=== PATIENT | female | born 1995 | race American Indian/Alaskan Native ===

== ENCOUNTER 2017-08-22 10:55 | Emergency (ER) | payer OTHER ==
[2017-08-22 12:15] VITALS: TEMP 99.5; O2SAT 100
[2017-08-22] MEDS ORDERED: Sodium Chloride 0.9% 1,000 ML IV ONE (13:03)
--- NOTE | 2017-08-22 13:03 | C.PDOC ---
History Of Present Illness 22 year old female presents to the ED with complaints of diffuse abdominal pain , nausea, and blood in stool for two days. Patient reports she was seen in [facility] yesterday for vaginal bleeding for 5 days and was diagnosed with a " demise <20 weeks". She states she was only given Zofran and discharged home. PT HAS NOT FILLED ZOFRAN RX. Patient is . Patient denies vomiting, diarrhea, fever, or other complaints at this time. Time Seen by Provider: 08/22/17 11:39 Chief Complaint (Nursing): Medical Clearance History Per: Patient History/Exam Limitations: no limitations Onset/Duration Of Symptoms: Days (2 days ) Current Symptoms Are (Timing): Still Present Quality Of Discomfort: "Pain" Associated Symptoms: Nausea. denies: Fever, Chills, Vomiting, Diarrhea Alleviating Factors: None Recent travel outside of the [place]: No Additional History Per: Family, Prior Records ([facility] discharge paper work ) Past Medical History Reviewed: Historical Data, Nursing Documentation, Vital Signs Vital Signs: Last Vital Signs Temp 99.5 F 08/22/17 12:14 Pulse 70 08/22/17 12:14 Resp 20 08/22/17 12:14 BP 107/69 08/22/17 12:14 Pulse Ox 100 08/22/17 15:19 - Medical History PMH: Chronic Kidney Disease Surgical History: Appendectomy (2011) Family History: States: Unknown Family Hx - Social History Hx Tobacco Use: No Hx Alcohol Use: No Hx Substance Use: Yes (Marijuana) - Immunization History Hx Tetanus Toxoid Vaccination: No Hx Influenza Vaccination: No Hx Pneumococcal Vaccination: No Review Of Systems Constitutional: Negative for: Fever, Chills Cardiovascular: Negative for: Chest Pain, Palpitations Respiratory: Negative for: Cough, Shortness of Breath Gastrointestinal: Positive for: Nausea, Abdominal Pain, Hematochezia. Negative for: Vomiting, Diarrhea Genitourinary: Negative for: Dysuria Physical Exam - Physical Exam Appears: Non-toxic, No Acute Distress Skin: Warm, Dry, No Rash Head: Atraumatic, Normacephalic, No Tenderness Eye(s): bilateral: Normal Inspection, PERRL, EOMI Oral Mucosa: Moist Neck: Supple Chest: Symmetrical, No Deformity Cardiovascular: Rhythm Regular, No Murmur Respiratory: No Rales, No Rhonchi, No Wheezing, Other (clear to auscultation bilaterally ) Gastrointestinal/Abdominal: Soft, No Tenderness, No Distention, No Guarding, No Rebound Rectal: Other (Guacic card shows brown stool, no gross blood. Chaperoned by pierre Mazariegos. ) Back: No CVA Tenderness Extremity: Normal ROM, No Tenderness Neurological/Psych: Oriented x3 ED Course And Treatment - Laboratory Results Result Diagrams: 08/22/17 13:23 08/22/17 13:23 O2 Sat by Pulse Oximetry: 100 (RA) - CT Scan/US First trimester US Other Rad Studies (CT/US): Read By Radiologist, Radiology Report Reviewed CT/US Interpretation: FINDINGS: UTERUS: Single intrauterine gestation. CRL equivalent to 6 weeks 2 days gestatioin. Gestational sac diameter equivalent to out of range for age determination. age (Ultrasound estimated): 6 weeks 2 days. No detectable cardiac activity. Seema-gestational hemorrhage: None. Uterus measures 6.8 x 5.6 x 6.7 cm. No mass. CERVIX: Long and closed. No cervical abnormality seen. RIGHT OVARY: Measures 3.0 x 2.0 x 3.3 cm. No mass. Normal flow. LEFT OVARY: Measures 2.9 x 1.9 x 3.2 cm. No mass. Normal flow. FREE FLUID: None. OTHER FINDINGS: None. IMPRESSION: Six weeks 2 day intrauterine gestation without detectable cardiac activity. Concerning for demise. Followup with serial beta HCG and transvaginal pelvic ultrasound examination is advised. Progress Note: Blood work, labs, and 1st trimerster USwere ordered. Patient was given Zofran and IV fluids. Progress - Re-Evaluation Re-evaluation Note: 08/22/17 15:20 APPEARS COMFORTABLE. VSS MILD NAUSEA D/W DR April RUSSELL, METHERGINE 0.2 MG PO Q4 X 6 DOSES, NSAIDS FU CLINIC - Data Reviewed Data Reviewed: Lab, Diagnostic imaging, Old records - Continuity of Care Discussed patient case with:: Patient Discussed pt. case with networks software consultant/specialty: Obstetrics/Gynecology Disposition Counseled Patient/Family Regarding: Studies Performed, Diagnosis, Need For Followup, Rx Given - Disposition Referrals: Education Counselor Service [Outside] [facility] [Outside] Disposition: HOME/ ROUTINE Disposition Time: 15:21 Condition: IMPROVED Additional Instructions: FILL ZOFRAN PRESCRIPTION GIVEN TO YOU BY [facility] TAKE MEDS PRESCRIBED. FOLLOW UP OBGYN CLINIC Prescriptions: Ibuprofen [Motrin] 600 mg PO Q6 #30 tab Methylergonovine [Methergine] 0.2 mg PO Q4 #6 tab Instructions: Spontaneous Miscarriage (ED) Forms: [employer] ([place]) - Clinical Impression Clinical Impression: Incomplete miscarriage - Scribe Statement The provider has reviewed the documentation as recorded by the Scribe Pari Medina All medical record entries made by the Lakeshiaiblaura were at my direction and personally dictated by me. I have reviewed the chart and agree that the record accurately reflects my personal performance of the history, physical exam, medical decision making, and the department course for this patient. I have also personally directed, reviewed, and agree with the discharge instructions and disposition.
[2017-08-22 13:31] LABS: BASO % 0.3 % (0.0-2.0); EOS % 0.2 % (0.0-4.0); LYMPH # 1.3 K/uL (1.0-4.3); MEAN CELL VOLUME 92.2 fL (81.0-99.0); MEAN CORPUSCULAR HEMOGLOBIN 31.3 pg (27.0-31.0); MEAN PLATELET VOLUME 8.4 fL (7.2-11.7); MONO # 0.6 K/uL (0.0-0.8); MONO % 6.6 % (0.0-10.0); RED CELL DISTRIBUTION WIDTH 12.1 % (11.5-14.5); WHITE BLOOD COUNT 9.2 K/uL (4.8-10.8)
[2017-08-22 13:41] LABS: CHLORIDE 98 mmol/L (98-107)
[2017-08-22 13:42] LABS: POTASSIUM 3.4 mmol/L (3.6-5.2); SODIUM 134 mmol/L (132-148)
[2017-08-22 13:44] LABS: ALB/GLOB RATIO 1.2 (1.0-2.1); ALKALINE PHOSPHATASE 49 U/L (38-126); AST/SGOT 15 U/L (14-36); BILIRUBIN,TOTAL 0.6 mg/dL (0.2-1.3); CARBON DIOXIDE 24 mmol/L (22-30); GFR AFRICAN-AMERICAN > 60; TOTAL PROTEIN 8.3 g/dL (6.3-8.3)
[2017-08-22 13:45] LABS: ALT/SGPT 28 U/L (9-52); BLOOD UREA NITROGEN 5 mg/dL (7-17); CALCIUM 9.1 mg/dl (8.6-10.4); GLUCOSE,RANDOM 86 mg/dL (65-105)
[2017-08-22 13:52] LABS: RBC URINE 1 /hpf (0-3); URINE BILIRUBIN NEGATIVE (NEGATIVE); URINE BLOOD NEGATIVE (NEGATIVE); URINE COLOR Yellow (YELLOW); URINE GLUCOSE (UA) NORMAL (Normal); URINE KETONE NEGATIVE (NEGATIVE); URINE LEUKOCYTE ESTERASE 1+ Leu/uL (Negative); URINE PROTEIN NEGATIVE (NEGATIVE); URINE UROBILINOGEN NORMAL mg/dL (0.2-1.0); WBC URINE 11 /hpf (0-5)
--- NOTE | 2017-08-22 14:45 | US ---
PROCEDURE: OB Pelvic Ultrasound HISTORY: VAG BLEED RO RPOC COMPARISON: None available. FINDINGS: UTERUS: Single intrauterine gestation. CRL equivalent to 6 weeks 2 days gestatioin Gestational sac diameter equivalent to out of range for age determination age (Ultrasound estimated): 6 weeks 2 days No detectable cardiac activity Seema-gestational hemorrhage: None. Uterus measures 6.8 x 5.6 x 6.7 cm. No mass CERVIX: Long and closed. No cervical abnormality seen. RIGHT OVARY: Measures 3.0 x 2.0 x 3.3 cm. No mass. Normal flow. LEFT OVARY: Measures 2.9 x 1.9 x 3.2 cm. No mass. Normal flow. FREE FLUID: None. OTHER FINDINGS: None. IMPRESSION: Six weeks 2 day intrauterine gestation without detectable cardiac activity. Concerning for demise. Followup with serial beta HCG and transvaginal pelvic ultrasound examination is advised.
[2017-08-22 15:55] VITALS: BP 121/78; PULSE 84; RESP 16
== END 2017-08-22 15:56 | disposition home or self-care (01) ==
LOC: C.ER 10:55
DX: O03.4 Incomplete spontaneous abortion without complication (principal)
CPT/HCPCS: 76805; 76817; 80053; 81001; 84702; 85025; 86850; 86900; 96361; 96372; 96374; 96375; 99282; G0328; J1885; J2210; J2405; J2550; J7040

== ENCOUNTER 2017-09-04 14:55 | Emergency (ER) | payer MEDICAID ==
[2017-09-04 15:01] VITALS: BP 109/74; PULSE 88; RESP 18; TEMP 97.9
[2017-09-04] MEDS ORDERED: Sodium Chloride 0.9% 1,000 ML IV ONE (15:16)
[2017-09-04 15:54] LABS: RBC URINE 4 /hpf (0-3); URINE BACTERIA RARE (<OCC); URINE BILIRUBIN NEGATIVE (NEGATIVE); URINE BLOOD NEGATIVE (NEGATIVE); URINE COLOR Yellow (YELLOW); URINE GLUCOSE (UA) NORMAL (Normal); URINE KETONE 1+ mg/dL (NEGATIVE); URINE LEUKOCYTE ESTERASE 3+ Leu/uL (Negative); URINE PROTEIN NEGATIVE (NEGATIVE); WBC URINE 24 /hpf (0-5)
[2017-09-04 15:55] LABS: BASO % 0.5 % (0.0-2.0); EOS # 0.1 K/uL (0.0-0.7); EOS % 1.5 % (0.0-4.0); HEMATOCRIT 38.4 % (34.0-47.0); LYMPH # 1.6 K/uL (1.0-4.3); LYMPH % 19.5 % (20.0-40.0); MEAN CORPUSCULAR HEMOGLOBIN 31.4 pg (27.0-31.0); MEAN CORPUSCULAR HGB CONC 34.2 g/dL (33.0-37.0); MEAN PLATELET VOLUME 8.1 fL (7.2-11.7); MONO # 0.6 K/uL (0.0-0.8); MONO % 6.8 % (0.0-10.0); RED CELL DISTRIBUTION WIDTH 12.6 % (11.5-14.5); WHITE BLOOD COUNT 8.2 K/uL (4.8-10.8)
[2017-09-04] MEDS ORDERED: Sodium Chloride 0.9% 1,000 ML ONE (15:59)
[2017-09-04 16:05] LABS: INR 1.2
[2017-09-04 16:13] LABS: ALB/GLOB RATIO 1.1 (1.0-2.1); ALKALINE PHOSPHATASE 47 U/L (38-126); ALT/SGPT 33 U/L (9-52); AST/SGOT 19 U/L (14-36); BILIRUBIN,TOTAL 0.7 mg/dL (0.2-1.3); BLOOD UREA NITROGEN 5 mg/dL (7-17); CALCIUM 9.3 mg/dl (8.6-10.4); CARBON DIOXIDE 25 mmol/L (22-30); CHLORIDE 98 mmol/L (98-107); GFR AFRICAN-AMERICAN > 60; GLUCOSE,RANDOM 76 mg/dL (65-105); POTASSIUM 3.9 mmol/L (3.6-5.2); SODIUM 132 mmol/L (132-148); TOTAL PROTEIN 8.1 g/dL (6.3-8.3)
--- NOTE | 2017-09-04 16:55 | US ---
PROCEDURE: OB ultrasound dated 09/04/2017. HISTORY: Left lower quadrant pain s/p demise tx with Methergine COMPARISON: Comparison made with prior study 08/22/2017. FINDINGS: UTERUS: The uterus is anteverted measuring approximately 8.4 x 6.6 x 7.8 cm. CERVIX: Cervix is closed measuring approximately 2.37 cm. There is a single living intrauterine gestation. Measurements: Gestational sac: MS D = 2.77 cm = 7 weeks 4 day Yolk sac: 0.31 cm pole: CRL = 0.98 cm = 7 weeks 0 day Heart motion: 142 BPM Average ultrasound age = 7 weeks 2 days 0 weeks 4 days SHANE based on AUA = 04/21/2018 = Note made of a heterogeneous structure within the gestational sac that could represent some clot. Clinical correlation recommended. Followup serial serum beta HCG and serial ultrasound recommended. RIGHT OVARY: Right ovary measures approximately 2.85 x 1.4 x 2.7 cm. No mass lesion. Normal flow. LEFT OVARY: Left ovary measures approximately 2.6 x 2.2 x 2.2 cm. No solid mass. Normal flow. . FREE FLUID: No gross free fluid OTHER FINDINGS: None IMPRESSION: Single living intrauterine gestation estimated at approximately 7 weeks 4 days with heart rate documented at 142 BPM. There is a heterogeneous structure within the gestational sac of uncertain etiology though could represent clot. Clinical correlation recommended. Note that this report was put discussed with at approximately 4:52 p.m. with written down and read back verification.
--- NOTE | 2017-09-04 18:24 | C.PDOC ---
Time Seen by Provider: 09/04/17 15:07 Chief Complaint (Nursing): Female Genitourinary History Per: Patient Onset/Duration Of Symptoms: Days Current Symptoms Are (Timing): Still Present Severity: Moderate Quality Of Discomfort: "Pain" Associated Symptoms: Nausea Alleviating Factors: None Additional History Per: Prior Records Abnormal Vaginal Bleeding: Yes Past Medical History Reviewed: Historical Data, Nursing Documentation, Vital Signs Vital Signs: Last Vital Signs Temp 97.9 F 09/04/17 14:59 Pulse 88 09/04/17 14:59 Resp 18 09/04/17 14:59 BP 109/74 09/04/17 14:59 Pulse Ox 100 09/04/17 14:59 - Medical History PMH: Chronic Kidney Disease Surgical History: Appendectomy (2011) Family History: States: Unknown Family Hx - Social History Hx Tobacco Use: No Hx Alcohol Use: No Hx Substance Use: Yes (Marijuana) - Immunization History Hx Tetanus Toxoid Vaccination: No Hx Influenza Vaccination: No Hx Pneumococcal Vaccination: No Review Of Systems Except As Marked, All Systems Reviewed And Found Negative. Constitutional: Negative for: Fever, Weakness Cardiovascular: Negative for: Chest Pain Respiratory: Negative for: Shortness of Breath Genitourinary: Positive for: Vaginal Discharge, Vaginal Bleeding, Pelvic Pain Musculoskeletal: Negative for: Neck Pain, Back Pain Skin: Negative for: Rash Neurological: Negative for: Weakness, Numbness Physical Exam - Physical Exam Appears: Non-toxic, No Acute Distress Skin: Normal Color, Warm, Dry, No Rash Head: Atraumatic, Normacephalic Eye(s): bilateral: Normal Inspection, PERRL, EOMI Neck: Normal ROM, Supple Cardiovascular: Rhythm Regular Respiratory: Normal Breath Sounds, No Accessory Muscle Use Gastrointestinal/Abdominal: Soft, Tenderness (mild suprapubic), No Guarding, No Rebound Back: No CVA Tenderness Extremity: Normal ROM Neurological/Psych: Oriented x3, Normal Motor, Normal Sensation ED Course And Treatment - Laboratory Results Result Diagrams: 09/04/17 15:41 09/04/17 15:41 Interpretation Of Abnormal: Possible UTI. beta hcg increased since last time. Urine POC: Positive O2 Sat by Pulse Oximetry: 100 Pulse Ox Interpretation: Normal - CT Scan/US Pelvic US Other Rad Studies (CT/US): Read By Radiologist, Radiology Report Reviewed CT/US Interpretation: IMPRESSION: Single living intrauterine gestation estimated at approximately 7 weeks 4 days with heart rate documented at 142 BPM. There is a heterogeneous structure within the gestational sac of uncertain etiology though could represent clot. Clinical correlation recommended. Note that this report was put discussed with at approximately 4:52 p.m. with written down and read back verification. Progress Note: Pt was seen here recently and diagnosed with demise and given Methergine. Reassessment Condition: Improved - Physician Consult Information Physician Contacted: Frank Meraz (Sports Umpire) Outcome Of Conversation: He states that there is nothing to do in the ED today. Pt should f/up with her Fluoroscope Operator for further evaluation and treatment. Disposition Counseled Patient/Family Regarding: Studies Performed, Diagnosis, Need For Followup, Rx Given - Disposition Disposition: HOME/ ROUTINE Disposition Time: 18:26 Condition: STABLE Additional Instructions: Drink plenty of fluids. Follow up with your Sports Umpire doctor within 1 week for further evaluation and treatment. Return to the ER if you develop fever, worsening of symptoms or if you have any other concerns. Prescriptions: Nitrofurantoin Macrocrystals [Macrobid] 1 cap PO BID #14 cap Vit Calc,Iron,Folic [ Vitamins] 1 tab PO DAILY #30 tablet Instructions: Threatened Miscarriage (ED) - Clinical Impression Clinical Impression: with 7 completed weeks gestation, Threatened in first trimester, UTI (urinary tract infection)
[2017-09-04 19:02] VITALS: O2SAT 99
== END 2017-09-04 19:03 | disposition home or self-care (01) ==
LOC: C.ER 14:55
DX: O20.0 Threatened abortion (principal); O23.41 Unspecified infection of urinary tract in pregnancy, first trimester; Z3A.01 Less than 8 weeks gestation of pregnancy
CPT/HCPCS: 76801; 80053; 81001; 84702; 84703; 85025; 85610; 85730; 86850; 86900; 96361; 96374; 96375; 99285; J1885; J2405; J7040